=== PATIENT | female | born 1990 | race African-American/Black ===

== ENCOUNTER 2025-09-11 13:16 | Outpatient (AMB) | payer MEDICARE, MEDICAID, SELFPAY ==
[2025-09-11 13:22] VITALS: BP 148/80; PULSE 95; O2SAT 97; BMI 63.1
--- NOTE | 2025-09-11 13:22 | A.OFFVIS_ITS ---
Vital Signs 09/11/25 13:22 Height 5 ft 2 in Weight 345 lb BMI 63.1 BP 148/80 H Blood Pressure Location Lt radial Pulse 95 Pulse Source Pulse Oximeter Pulse Oximetry (%) 97 Oxygen Delivery Method Room Air Intake Visit Reasons: Asthma Allergies Penicillins Allergy (Severe, Verified 09/11/25 13:30) Unknown sulfur Allergy (Severe, Uncoded 09/11/25 13:30) Hives HPI Comments Details: The patient is here for pulmonary evaluation. The patient is a 35 year young woman with a history of severe persistent asthma in addition to obstructive sleep apnea. She has been followed closely by pediatric Pulmonary for many years. She has been evaluated in the ER multiple times for frequent exacerbations. The patient has never been intubated. She did start Xolair for her significant allergies. She has been on Xolair for many years and it has been only partially helpful. She does take the full dose. Will go ahead and recheck her levels. Also see if she is a candidate for different biologic regimen. She also continues on the Trelegy. Although the powder inhaler does not seem to be effective for her she is still using her rescue inhaler and/or nebulizer 3 to 5 times a day. Also, the patient has a diagnosis of sleep apnea. The patient has not been using her CPAP. She understands that she needs it. She does wake up with daytime drowsiness. She has an [place] score that is elevated 09/21. She will try to start using it and she will bringing into the next visit. For now we are going to optimize her respiratory therapy by switching over to nebulized solution since she does not respond to the inhalers. The patient will also undergo blood work to see if we can consider a different biologic for her. In the meantime she will undergo pulmonary function studies and will restart the CPAP. If she has any issues he can always call and we can give her additional recommendations. [facility] Medical History (Updated 09/13/25 @ 21:00 by Gilbert Cardona MD) GLADYS (obstructive sleep apnea) Asthma Social History (Updated 09/11/25 @ 13:37 by CHE Britton) Patient Tobacco Use Status: Never used Tobacco Review of Systems Const Reports daytime sleepiness, Reports snoring and Reports stops breathing during sleep Eyes Reports no additional complaints ENT Reports nasal congestion Card Denies chest pain and Reports dyspnea on exertion Resp Reports cough, Reports dyspnea on exertion, Reports snoring and Reports wheezing GI Reports no additional complaints Musc Reports no additional complaints Skin/Breast Denies rash Neuro Reports no additional complaints Fady/Lymph Reports no additional complaints Aller/Immun Reports wheezing Physical Exam Vital Signs: Last Vital Signs Pulse 95 09/11/25 13:22 BP 148/80 H 09/11/25 13:22 Pulse Ox 97 09/11/25 13:22 Oxygen Delivery Method Room Air 09/11/25 13:22 BMI result Body Mass Index 63.1 Const General: comfortable HEENT Head: Yes normocephalic Neck Neck: Yes supple Chest Chest palpation & inspection: normal inspection of the chest Resp Effort & Inspection: normal respiratory effort Auscultation: wheezes Cardio Heart sounds: S1 normal heart sound present and S2 normal heart sound present GI Palpation (GI): Soft to palpation Skin General skin exam: no rashes or lesions noted Extrem General: No clubbing and No cyanosis Assessment & Plan Assessment & Plan (1) Asthma: Code(s): J45.909 - Unspecified asthma, uncomplicated Category: Medical Qualifiers: Asthma severity: severe Asthma persistence: persistent Asthma complication type: uncomplicated Qualified Code(s): J45.50 - Severe persistent asthma, uncomplicated (2) GLADYS (obstructive sleep apnea): Code(s): G47.33 - Obstructive sleep apnea (adult) (pediatric) Category: Medical Plan Stop Trelegy Start Brovana/Budesonide nebs start Spiriva SANCHO as needed Bloodwork PFTs restart PAP therapy weight managemnet: should consider GLP1 inhibitors F/U 2-3 months Orders: Orders Immunoglobulins,IgG IgA IgM 09/11/25 J45.909 - Unspecified asthma, uncomplicated Immunoglobulin E 09/11/25 J45.909 - Unspecified asthma, uncomplicated Complete Blood Count Auto Diff 09/11/25 J45.909 - Unspecified asthma, uncomplicated Basic Metabolic Panel 09/11/25 J45.909 - Unspecified asthma, uncomplicated Erythrocyte Sedimentation Rate 09/11/25 J45.909 - Unspecified asthma, uncomplicated Immunoglobulin G Subclasses 09/11/25 J45.909 - Unspecified asthma, uncomplicated VINCENT Reflex Titer and Pattern 09/11/25 J45.909 - Unspecified asthma, uncomplicated PFT pulmonary function test Today J45.50 - Severe persistent asthma, uncomplicated Medications: New budesonide 0.5 mg (2 mL) inhalation BID 120 mL 11RF 30 days J44.9 - Chronic obstructive pulmonary disease, unspecified tiotropium bromide 2.5 mcg/actuation (Spiriva Respimat) 2 puffs inhalation DAILY 1 ea 11RF 30 days arformoterol (Brovana) 2 mL inhalation Q12H 120 mL 11RF 30 days J44.9 - Chronic obstructive pulmonary disease, unspecified epinephrine (EpiPen 2-Dandre) for 2 doses 0.3 mg (0.3 mL) IM Q10M PRN 2 ea 6RF anaphylaxis 30 days J45.40 - Moderate persistent asthma, uncomplicated prednisone PO daily; Take 2 tabs daily x 5 days, then 1 tablet daily x 5 days 15 tabs 0RF 10 days Coding Level of Care Code New Pt Level 4 (08640) Diagnoses Severe persistent asthma without complication J45.50 Asthma severity: severe Asthma persistence: persistent Asthma complication type: uncomplicated GLADYS (obstructive sleep apnea) G47.33 Time Spent (min) 45
--- OUTSIDE RECORDS SUMMARY | 2025-09-11 19:28 | XMS_ITS | Clinical Summary ---
Author Organization [facility] Address [address] [place] [address] Care Team Providers Care Pulverizer Name Role Phone Alize Good DMD Primary Care Provider [phone] Source Comments PLEASE NOTE, if this patient is a minor, it may be UNLAWFUL to discuss sensitive information that is contained in these records (such as FAMILY PLANNING, MENTAL HEALTH or SUBSTANCE ABUSE) with the minor patient's parent or other person without the patient's specific authorization.[facility] Allergies Active Allergy Reactions Criticality Noted Date Comments Penicillins 08/18/2024 Sulfate Ion 08/18/2024 Medications No known medications Active Problems No known active problems Social History Tobacco Use Types Packs/Day Years Used Date Smoking Tobacco: Never Smokeless Tobacco: Never Tobacco Cessation:Counseling Given: Not Answered Social Connections Answer Date Recorded Connectedness 0 08/18/2024 Financial Resource Strain Answer Date R ecorded Financial Resource Strain 0 2023 Stress Answer Date Recorded Stress 0 08/18/2024 Physical Activity Answer Date Recorded Physical Activity 0 08/18/2024 Food Insecurity Answer Date Recorded Food 0 08/18/2024 Transportation Needs Answer Date Record ed Transportation 0 08/18/2024 Housing Stability Answer Date Recorded Housing 0 08/18/2024 Safety and Environment Answer Date Yao rded Safety 0 08/18/2024 Utilities Answer Date Recorded Utilities 0 08/18/2024 Employment Answer Date Recorded Stress 0 08/18/2024 Comments Unknown Sex and Gender Information Value Date Recorded Sex Assigned at Not on file Legal Sex Female 8:43 AM PDT Gender Identity Not on file Sexual Orientation Not on file Last Filed Vital Signs Vital Sign Reading Time Taken Comments Blood Pressure 106/66 12/26/2024 10:36 AM EST Pulse 82 12/26/2024 10:36 AM EST Temperature - - Respiratory Rate - - Oxygen Saturation - - Inhaled Oxygen Concentration - - Weight - - Height - - Body Mass Index - - Plan of Treatment Health Maintenance Due Date Last Done Comments Anxiety Screening 1992 HPV Screening (self-collect) 1992 HPV Screening 1992 Hepatitis C Screening 1992 Pap + HPV 1992 HIV Screening 2007 Relationship Safety Screening/Counseling 2007 Imm-Hepatitis B (1 of 3 - 19 + 3-dose series) 2011 Cervical Cancer Screening 2013 Pap Smear 2013 Imm-HPV (1 - 3-dose SCDM series) 2019 Alcohol and Drug Screen 10/29/2024 Depression Annual Screen 10/29/2024 [id number] ( season) 2025 12/30/2021, 02/28/2021, 01/31/2021 Imm-Influenza (#1) 2025 10/02/2023, 0 12/10/2017, 08/09/2016 Dental BW 08/20/2025 08/18/2024 Dental Examination 08/20/2025 08/18/2024 Dental Perio Charting 08/20/2025 08/18/2024 Dental Prophy 08/20/2025 08/18/2024 Tobacco Screening 11/13/2025 11/13/2024 Imm-DTaP/Tdap/Td (2 - Td or Tdap) 08/09/2026 016 Hypertension Screening (#1) 12/26/2027 Dental FMX/Pano 08/20/2029 08/18/2024 Cervical Ablation/Cold-Knife Conization Discontinued Cervical Cryotherapy Discontinued Colposcopy Discontinued Excision/Leep Discontinued HPV Genotyping Discontinued Vaginal Pap Discontinued Vulvoscopy Discontinued Procedures Procedure Name Priority Date/Time Associated Diagnosis Comments INTRAORAL - COMP SERIES OF RADIOGRAPHIC IMAGES Routine 08/18/2024 10:20 AM EDT Caries of enamel (incipient) Caries PROPHYLAXIS - ADULT Routine 08/18/2024 1 0:20 AM EDT Caries of enamel (incipient) Caries COMP ORAL EVALUATION - NEW/ESTABLISHED PATIENT Routine 08/18/2024 10:20 AM EDT Caries of enamel (incipient) Caries from Last 3 Months or Most Recently Relevant to Health Maintenance Insurance [place] Care Teams Pulverizer Relationship Specialty Start Date End Date Alize Good DMD [address] [place] [address] PCP - General 07/10/19
== END 2025-09-11 14:09 | disposition home or self-care (01) ==
LOC: HO.HPS 13:16
PROVIDERS: PCP Internal Medicine; Referring Provider Internal Medicine; Visit Provider Hospitalist
DX: J45.50 Severe persistent asthma, uncomplicated (principal); G47.33 Obstructive sleep apnea (adult) (pediatric)
CPT/HCPCS: 99204

== ENCOUNTER 2025-09-11 13:16 | Outpatient (REF) | payer MEDICARE, MEDICAID, SELFPAY ==
[2025-09-11 14:21] LABS: MANUAL DIFF FLAG NO
[2025-09-11 14:37] LABS: Hematocrit 43.2 % (37.0-47.0); Hemoglobin 14.4 g/dl (12.0-16.0); Imm Gran Abs Auto 0.04 X10*3/uL (0.00-0.03); Imm Gran Pct Auto 0.4 % (0.0-0.4); Lymphocytes Absolute Auto 3.7 X10*3/uL (1.2-4.9); Mean Corpuscular HGB Conc 33.3 g/dl (31.0-35.0); Mean Corpuscular Hemoglobin 28.7 pg (27.0-33.0); Mean Corpuscular Volume 86.1 fL (80.0-98.0); NRBC Abs Auto 0.000 X10*3/uL (0.0-0.012); NRBC Pct Auto 0.0 /100WBC (0.0-0.2); Platelet Count 307 X10*3/uL (160-400); Red Blood Count 5.02 X10*6/uL (4.20-5.50); White Blood Count 11.4 X10*3/uL (4.8-10.8)
[2025-09-11 14:59] LABS: Anion Gap 10 (12-20); Blood Urea Nitrogen 11 mg/dL (9-16); Calcium 9.3 mg/dL (8.4-10.2); Carbon Dioxide 27 mmol/L (22-29); Chloride 107 mmol/L (96-108); Estimated Glomerular Filt Rate > 60; Potassium 4.0 mmol/L (3.3-5.1); Sodium 140 mmol/L (135-145)
[2025-09-14 13:13] LABS: Immunoglobulin G Subclass 1 522 mg/dL (382-929); Immunoglobulin G Subclass 2 374 mg/dL (241-700); Immunoglobulin G Subclass 3 58 mg/dL (22-178); Immunoglobulin G Subclass 4 223.2 mg/dL (4-86); Immunoglobulin G Total 1107 mg/dL (600-1640)
[2025-09-15 10:08] LABS: Anti Nuclear Antibody Screen NEGATIVE (NEGATIVE)
== END 2025-09-11 13:17 | disposition home or self-care (01) ==
LOC: HO.LAB 13:16
PROVIDERS: PCP Internal Medicine; Referring Provider Internal Medicine; Visit Provider Hospitalist
DX: J45.50 Severe persistent asthma, uncomplicated (principal); G47.33 Obstructive sleep apnea (adult) (pediatric); Z01.84 Encounter for antibody response examination
CPT/HCPCS: 36415; 80048; 82784; 82785; 85025; 85652; 86038; 99202